=== PATIENT | male | born 1945 | race Caucasian/White ===

== ENCOUNTER 2016-09-30 13:30 | Emergency (ER) | payer MEDICARE, BC ==
[~2016-09-30 13:30] MED LIST: AGGRENOX PO; ASPIRIN PO; ATENOLOL25 MG PO; BACTRIM DS TABL1 TA1 PO; CADUET PO; CELEXA PO; CIPRO PO; CIPROFLOXACIN500 M1 PO; DILTIAZEM 24HR240 MG PO; FEROSUL325 ( 651 PO; GLIMEPIRIDE1 MG PO; GLIMEPIRIDE2 MG PO; GLUCOPHAGE500 MG PO; GLUCOVANCE PO; IRON325 ( 651 PO; ISMO20 MG PO; LIPITOR40 MG PO; LISINOPRIL PO; METFORMIN HCL500 M1 PO; NORVASC10 MG PO; ONGLYZA2.5 MG PO; PANTOPRAZOLE SO40 MG PO; PLAVIX PO; PLETAL100 MG PO; PRINIVIL5 MG PO; RANITIDINE HCL150 M1 PO; TENORETIC PO; TRICOR145 MG PO; TRIGLIDE160 M1 PO; VICODIN 5/1 TAB 5/50 PO; WELCHOL3.75 GM PO; ZOCOR80 MG PO
[2017-03-04] MEDS ORDERED: ATENOLOL25 MG PO (12:58)
[2017-03-04] MEDS ORDERED: ISOSORBIDE MON120 M1 PO (12:59)
[2017-03-04] MEDS ORDERED: RANEXA1000 MG PO (12:59)
[2017-03-04] MEDS ORDERED: ZESTRIL40 MG PO (13:00)
[2017-03-04] MEDS ORDERED: DILTIAZEM 24HR240 M2 PO (13:00)
[2017-03-04] MEDS ORDERED: CLOPIDOGREL75 MG PO (13:00)
[2017-03-04] MEDS ORDERED: LIPITOR PO (13:00)
[2017-03-04] MEDS ORDERED: ASPIRIN81 M2 PO (13:01)
[2017-03-04] MEDS ORDERED: AMARYL2 MG PO (13:01)
[2017-03-04] MEDS ORDERED: HYDROCHLOROTH12.5 MG PO (13:01)
[2017-03-04] MEDS ORDERED: DULOXETINE HCL60 M1 PO (13:02)
[2017-03-04] MEDS ORDERED: ZANTAC150 M1 PO (13:02)
[2017-03-04] MEDS ORDERED: FERRO-TIME325 MG PO (13:02)
[2017-03-04] MEDS ORDERED: VITAMIN D-32000 UNI1 PO (13:02)
[2017-03-04] MEDS ORDERED: NITROGLYGERIN0.4 MG SL (13:03)
== END 2016-09-30 13:32 | disposition home or self-care (01) ==
LOC: CED 13:30
DX: K59.00 Constipation, unspecified (principal); I13.10 Hypertensive heart and chronic kidney disease without heart failure, with stage 1 through stage 4 chronic kidney disease, or unspecified chronic kidney disease; N18.9 Chronic kidney disease, unspecified; F17.210 Nicotine dependence, cigarettes, uncomplicated
CPT/HCPCS: 99282

== ENCOUNTER 2016-10-20 17:39 | Emergency (ER) | payer MEDICARE, BC ==
[2016-10-20 17:29] LABS: BASOPHIL% 0.4 % (0-2.5); EOSINOPHIL# 0.2 X10e3 (0-0.7); HEMATOCRIT 29.9 % (38.0-50.0); HEMOGLOBIN 10.1 gm/dL (13.0-16.0); LYMPHOCYTE# 1.4 X10e3 (1.0-3.5); LYMPHOCYTE% 17.9 % (17.0-45.0); MEAN CELL VOLUME 89.6 FL (83-96); MEAN CORPUSCULAR HEMOGLOBIN 30.3 PG (28-34); MEAN CORPUSCULAR HGB CONC 33.9 g/dL (30-36); MEAN PLATELET VOLUME 8.1 FL (6.5-11.5); MONOCYTE# 0.7 X10e3 (0-1.0); MONOCYTE% 8.9 % (3.0-12.0); NEUTROPHIL# 5.5 X10e3 (1.5-7.1); NEUTROPHIL% 69.8 % (40-75); PLATELET COUNT 296 X10e3 (140-420); RED BLOOD COUNT 3.34 X10e (3.90-5.60); RED CELL DISTRIBUTION WIDTH 14.2 % (11.0-15.5); WHITE BLOOD COUNT 7.9 X10e3 (4.0-10.5)
[2016-10-20 17:30] LABS: DIFF IND NO
[2016-10-20 17:53] LABS: BUN/CREATININE RATIO 16.08; CALCIUM SERUM 9.3 mg/dL (8.4-10.2); CREATININE SERUM 2.3 mg/dL (0.6-1.4); GLOM FILT RATE Estimated 30.1 mL/min (>60); POTASSIUM 5.1 mmol/L (3.5-5.1)
[2016-10-20 20:31] LABS: URINE SOURCE CLEAN CATCH
[2016-10-20 20:35] LABS: URINE APPEARANCE CLEAR; URINE BILIRUBIN NEG (NEG); URINE BLOOD NEG (NEG); URINE COLOR YELLOW; URINE GLUCOSE 500 MG/DL (NEG); URINE KETONE NEG (NEG); URINE LEUKOCYTE ESTERASE TRACE (NEG); URINE NITRATE NEG (NEG); URINE PROTEIN 1+ (NEG); URINE SPECIFIC GRAVITY 1.011 (1.003-1.035); URINE UROBILINOGEN 0.2 MG/DL (NEG)
[2016-10-20 20:37] LABS: URBCS1 AUWI 0-2 /[HPF] (0-2); URINE BACTERIA AUWI NEG (NEGATIVE); URINE SQUAMOUS EPITHELIAL CELL NONE SEEN /[HPF]
[2016-10-20 20:40] LABS: CULTURE INDICATED? NO
[2017-03-04] MEDS ORDERED: ATENOLOL25 MG PO (12:58)
[2017-03-04] MEDS ORDERED: ISOSORBIDE MON120 M1 PO (12:59)
[2017-03-04] MEDS ORDERED: RANEXA1000 MG PO (12:59)
[2017-03-04] MEDS ORDERED: LIPITOR PO (13:00)
[2017-03-04] MEDS ORDERED: DILTIAZEM 24HR240 M2 PO (13:00)
[2017-03-04] MEDS ORDERED: CLOPIDOGREL75 MG PO (13:00)
[2017-03-04] MEDS ORDERED: ZESTRIL40 MG PO (13:00)
[2017-03-04] MEDS ORDERED: ASPIRIN81 M2 PO (13:01)
[2017-03-04] MEDS ORDERED: HYDROCHLOROTH12.5 MG PO (13:01)
[2017-03-04] MEDS ORDERED: AMARYL2 MG PO (13:01)
[2017-03-04] MEDS ORDERED: VITAMIN D-32000 UNI1 PO (13:02)
[2017-03-04] MEDS ORDERED: ZANTAC150 M1 PO (13:02)
[2017-03-04] MEDS ORDERED: FERRO-TIME325 MG PO (13:02)
[2017-03-04] MEDS ORDERED: DULOXETINE HCL60 M1 PO (13:02)
[2017-03-04] MEDS ORDERED: NITROGLYGERIN0.4 MG SL (13:03)
== END 2016-10-20 21:10 | disposition home or self-care (01) ==
LOC: CED 17:39
PROVIDERS: Emergency Medicine
DX: E11.65 Type 2 diabetes mellitus with hyperglycemia (principal); I10 Essential (primary) hypertension; F17.200 Nicotine dependence, unspecified, uncomplicated
CPT/HCPCS: 36415; 80048; 81003; 82947; 85025; 96360; 99284; J1815

== ENCOUNTER → 2016-11-29 | Outpatient (CLI) | payer MEDICARE, BC ==
[~2016-11-29] MED LIST changes: +AMARYL2 MG PO; +ASPIRIN81 M2 PO; +CLOPIDOGREL75 MG PO; +DILTIAZEM 24HR240 M2 PO; +DULOXETINE HCL60 M1 PO; +FERRO-TIME325 MG PO; +HYDROCHLOROTH12.5 MG PO; +ISOSORBIDE MON120 M1 PO; +LIPITOR PO; +NITROGLYGERIN0.4 MG SL; +RANEXA1000 MG PO; +VITAMIN D-32000 UNI1 PO; +ZANTAC150 M1 PO; +ZESTRIL40 MG PO
--- NOTE | ~2016-11-29 | CT98 ---
[facility] A Service of [facility] & [facility] / [facility] RADIOLOGY TEXT RESULTS PATIENT: JEANMARIE NICOLE LOCATION: [facility] : [birth year] UNIT #: [id number] AGE: [address]: Celso Darden MD SEX: M ORDER DR: [id number] [facility] [address] [facility]. [place], [place] [address] [id number] O MR#: [id number] Acc #: [id number] NAME: JEANMARIE NICOLE : 1945 SEX: M STUDY DATE/TIME: 11/29/2016 10:10 UNIT: [facility] ROOM: STUDY DESCRIPTION: CT Lumbar Spine Wo Cont Attending Physician: Celso Darden M.D. Ordering Physician: Celso Darden M.D. Primary Care Physician: Celso Darden M.D. MEDICAL IMAGING REPORT This report is preliminary unless electronic signature is present EXAM Lumbar spine CT, no contrast, 11/29/2016. PROCEDURE Axial unenhanced lumbar CT with multiplanar reformats. This CT exam was performed with one or more of the following radiation dose reduction techniques: automatic exposure control, adjustment of mA and/or kV according to patient size, and iterative reconstruction. COMPARISON None HISTORY Right foot weakness. FINDINGS There is a mild scoliosis, and there is a grade 1 L4-L5 anterolisthesis. There is diffusely mottled bone marrow density. There is no gross nondegenerative lytic change or convincing nondegenerative blastic change. Findings could reflect chronic renal disease, as well. No acute fracture is seen. The paraspinous tissues are unremarkable. At L1-L2, there is no canal stenosis or foraminal stenosis. At L2-L3, there is a slight disc bulge and no canal stenosis or foraminal stenosis. At L3-L4, there is a disc bulge and mild canal narrowing and mild right and mild to moderate left foraminal narrowing. At L4-L5, there is anterolisthesis, pseudo disc bulge, facet arthropathy, and mild or even mild to moderate canal stenosis and moderate or moderate STS. [facility] A Service of [facility] & [facility] / [facility] RADIOLOGY TEXT RESULTS PATIENT: JEANMARIE NICOLE LOCATION: [facility] : [birth year] UNIT #: [id number] AGE: [address]: Celso Darden MD SEX: M ORDER DR: to severe right and moderate left foraminal stenosis. At L5-S1, there is disc and endplate degenerative change and perhaps a right paracentral disc protrusion, though that is not definite. There is no canal stenosis and minimal left foraminal stenosis, and at least moderate right foraminal stenosis. IMPRESSION 1. Degenerative changes with canal and foraminal narrowing at L4-L5 and L5-S1, including a degenerative L4-L5 grade 1 anterolisthesis. 2. Mottled bone mineral density may be related to renal insufficiency. No convincing lytic or blastic lesion is seen to suggest metastatic disease. If the patient does not have underlying renal insufficiency, the bone mineral density is a more troubling finding, and evaluation for possible lymphoproliferative process, such as myeloma, might be considered. Dictated by... Crow Bey M.D. THIS IS AN ELECTRONICALLY VERIFIED REPORT Crow Bey M.D. at 11/30/2016 4:53 PM JOSE/blaire TD: 11/29/2016 16:35 JOB #: [id number] MEDICAL IMAGING REPORT Page 1 of 1 COPY
== END | disposition home or self-care (01) ==
LOC: CCAT 09:45
DX: M21.41 Flat foot [pes planus] (acquired), right foot (principal); M47.816 Spondylosis without myelopathy or radiculopathy, lumbar region; M47.817 Spondylosis without myelopathy or radiculopathy, lumbosacral region; M43.16 Spondylolisthesis, lumbar region
CPT/HCPCS: 72131

== ENCOUNTER → 2017-03-05 | Day surgery (SDC) | payer MEDICARE, BC ==
--- NOTE | ~2017-03-05 | OR ---
Unit #: [id number] #: [id number] Patient: JEANMARIE NICOLE [id number] [address] [address] [id number] O MR#: [id number] NAME: JEANMARIE NICOLE. ROOM: Date of Procedure: 03/05/2017 Admission Date: 03/05/2017 Surgeon: Kenrick Buck M.D. : 1945 Attending Physician: Kenrick Buck M.D. Primary Care Physician: Celso Darden M.D. OPERATIVE REPORT PREOPERATIVE DIAGNOSES Back pain, radiculopathy, spondylolisthesis, degenerative disk disease, spinal stenosis and post laminectomy. POSTOPERATIVE DIAGNOSES Back pain, radiculopathy, spondylolisthesis, degenerative disk disease, spinal stenosis and post laminectomy. HISTORY The patient is a 72-year-old male with a several month history of worsening back and bilateral lower extremity pain. It is felt to be due to the previous mentioned diagnosis. He has not settled with conservative treatment. Based on his symptom complex, pathology and the physical examination, plan is for trial of epidural steroids. Risk and benefits were all of which have been reviewed. DESCRIPTION OF PROCEDURE The patient was placed in a seated position. Standard monitors were applied. Then, 1 mg of Versed were given for sedation and anxiolysis, which were adequate. Vital signs remained stable. Sterile prep and drape then of the lumbar area was performed. The skin then at the L4-L5 level was localized with 1% lidocaine. An 18-gauge Hustead needle was then advanced via loss of resistance technique and fluoroscopic guidance in toward the epidural space. After confirming proper positioning with fluoroscopy and radiographic contrast, 80 mg of Depo-Medrol and 4 mL of 0.125% bupivacaine were deposited. The patient tolerated the procedure otherwise well and was discharged to the recovery room in stable condition. Dictated by... Kenrick Buck M.D. LHP/modl TD: 03/05/2017 10:52 JOB #: [id number] CC: [facility] Unit #: [id number] #: [id number] Patient: JEANMARIE NICOLE OPERATIVE REPORT Page 1 of 1 X Kenrick Buck MD X PROCEDURE OPERATIVE NOTE
== END | disposition home or self-care (01) ==
LOC: CCSC 07:51
DX: M51.16 Intervertebral disc disorders with radiculopathy, lumbar region (principal); M43.16 Spondylolisthesis, lumbar region; M48.06 Spinal stenosis, lumbar region; I10 Essential (primary) hypertension; E11.9 Type 2 diabetes mellitus without complications; I73.9 Peripheral vascular disease, unspecified; K21.9 Gastro-esophageal reflux disease without esophagitis; Z79.02 Long term (current) use of antithrombotics/antiplatelets; Z79.899 Other long term (current) drug therapy; Z79.82 Long term (current) use of aspirin; Z98.890 Other specified postprocedural states
CPT/HCPCS: 82947; J1040; J2250

== ENCOUNTER → 2017-03-19 | Day surgery (SDC) | payer MEDICARE, BC ==
--- NOTE | ~2017-03-19 | OR ---
Unit #: [id number] #: [id number] Patient: JEANMARIE NICOLE [id number] [address] [address] [id number] O MR#: [id number] NAME: JEANMARIE NICOLE ROOM: Date of Procedure: 03/19/2017 Admission Date: 03/19/2017 Surgeon: Kenrick Buck M.D. : 1945 Attending Physician: Kenrick Buck M.D. Primary Care Physician: Celso Darden M.D. OPERATIVE REPORT PREOPERATIVE DIAGNOSES Back pain, radiculopathy, spondylolisthesis, spinal stenosis, degenerative disk disease. POSTOPERATIVE DIAGNOSES Back pain, radiculopathy, spondylolisthesis, spinal stenosis, degenerative disk disease. PROCEDURE PERFORMED Lumbar epidural steroid injection with intravenous sedation and fluoroscopic guidance for needle localization. INDICATIONS FOR PROCEDURE The patient is a 72-year-old male with previous mentioned diagnoses. He has currently nonsurgical pathology. He failed to settle with conservative treatment, so his spine surgeon requested a repeat trial of epidural steroids. Initial injection done last week resulted in initial improvement. He is maintained mild improvement. He still has significant pain, so plan is to repeat epidural steroid injection. DESCRIPTION OF PROCEDURE The patient was placed in a seated position. Standard monitors were applied. 1 mg of Versed was given for sedation and anxiolysis, which were adequate. Vital signs remained stable. Sterile prep and drape then of the lumbar area was performed. The skin at the L4-L5 level was localized with 1% lidocaine. An 18-gauge Hustead needle was then advanced via loss of resistance technique and fluoroscopic guidance in toward the epidural space. After confirming proper positioning with fluoroscopy and radiographic contrast, 80 mg of Depo-Medrol and 4 mL of 0.125% bupivacaine were deposited. The patient tolerated the procedure otherwise well and was discharged to recovery room in stable condition. Dictated by... Tino Coronel/rosalia TD: 03/19/2017 10:54 JOB #: [id number] Unit #: [id number] #: [id number] Patient: JEANMARIE NICOLE OPERATIVE REPORT Page 1 of 1 X Kenrick Buck MD X PROCEDURE OPERATIVE NOTE
== END | disposition home or self-care (01) ==
LOC: CCSC 07:44
PROVIDERS: Pain Medicine Pain Medicine
PROC: 3E0S3BZ Introduction of Anesthetic Agent into Epidural Space, Percutaneous Approach (ICD-10-PCS; 2017-03-19)
PROC: 3E0S33Z Introduction of Anti-inflammatory into Epidural Space, Percutaneous Approach (ICD-10-PCS; principal; 2017-03-19 09:15)
DX: M48.06 Spinal stenosis, lumbar region (principal); M43.16 Spondylolisthesis, lumbar region; M51.16 Intervertebral disc disorders with radiculopathy, lumbar region; I10 Essential (primary) hypertension; E11.9 Type 2 diabetes mellitus without complications; Z79.4 Long term (current) use of insulin; I73.9 Peripheral vascular disease, unspecified; K21.9 Gastro-esophageal reflux disease without esophagitis; Z79.01 Long term (current) use of anticoagulants; Z98.890 Other specified postprocedural states
CPT/HCPCS: 82947; J1040; J2250

== ENCOUNTER → 2017-04-02 | Day surgery (SDC) | payer MEDICARE, BC ==
--- NOTE | ~2017-04-02 | OR ---
Unit #: [id number] #: [id number] Patient: JEANMARIE NICOLE [id number] [address] [place], [place] [address] [id number] O MR#: [id number] NAME: JEANMARIE NICOLE ROOM: Date of Procedure: 04/02/2017 Admission Date: 04/02/2017 Surgeon: Kenrick Buck M.D. : 1945 Attending Physician: Kenrick Buck M.D. Primary Care Physician: Celso Darden M.D. OPERATIVE REPORT PREOPERATIVE DIAGNOSES Back pain, radiculopathy, post-laminectomy, spondylolisthesis, spinal stenosis. POSTOPERATIVE DIAGNOSES Back pain, radiculopathy, post-laminectomy, spondylolisthesis, spinal stenosis. PROCEDURE PERFORMED Lumbar epidural steroid injection with intravenous sedation and fluoroscopic guidance for needle localization. INDICATIONS FOR PROCEDURE The patient is a 72-year-old male, who presents with a 5- to 6-month history of worsening bilateral lower extremity pain greater than low back pain. He had Vascular workup, which was negative. Workup with a CT that showed post-laminectomy syndrome with anterolisthesis at the L4-L5 level due to facet and disk disease. There is moderate stenosis, essentially neural foraminal at this level. There was degenerative change and right foraminal protrusion at L5-S1 level. The decision was made to give the patient a trial of epidural steroids. Two were done over the last month or so. The first which gave him moderate improvement for about a week. The pain then began to return. Second injection resulted in better longer and sustained improvement. There has been some return. The patient is now able to walk for 20 minutes versus 10 minutes before we had done the injections. His back pain is resolved. His legs are the main issue. Plan is to proceed with a final injection at this point. He strongly hopes to avoid surgery, but that can only be determined based on his overall responses and symptomatology. DESCRIPTION OF PROCEDURE The patient was placed in a seated position. Standard monitors were applied. 1 mg of Versed was given for sedation and anxiolysis, which were adequate. Vital signs remained stable. Sterile prep and drape then of the lumbar area was performed. The skin then at the L4-L5 level was localized with 1% lidocaine. An 18-gauge Quill [employer] needle was then advanced via loss of resistance technique and fluoroscopic guidance in toward the epidural space. After confirming proper positioning with fluoroscopy and radiographic contrast, a dose of 80 mg of Depo-Medrol and 4 mL of 0.125% bupivacaine were deposited. The patient tolerated the procedure otherwise well and was discharged to the recovery room in stable condition. Unit #: [id number] #: [id number] Patient: JEANMARIE NICOLE Dictated by... Tino Coronel/rosalia TD: 04/02/2017 17:21 JOB #: [id number] OPERATIVE REPORT Page 1 of 1 X Kenrick Buck MD X PROCEDURE OPERATIVE NOTE
== END | disposition home or self-care (01) ==
LOC: CCSC 07:46
DX: M96.1 Postlaminectomy syndrome, not elsewhere classified (principal); M51.16 Intervertebral disc disorders with radiculopathy, lumbar region; M43.16 Spondylolisthesis, lumbar region; M48.06 Spinal stenosis, lumbar region; M99.73 Connective tissue and disc stenosis of intervertebral foramina of lumbar region; I10 Essential (primary) hypertension; E11.9 Type 2 diabetes mellitus without complications; K21.9 Gastro-esophageal reflux disease without esophagitis; I73.9 Peripheral vascular disease, unspecified; Z79.02 Long term (current) use of antithrombotics/antiplatelets; Z79.82 Long term (current) use of aspirin; Z79.899 Other long term (current) drug therapy
CPT/HCPCS: 82947; J1040; J2250